=== PATIENT | female | born 1975 | race African-American/Black ===

== ENCOUNTER 2017-03-30 00:54 | Emergency (ER) | payer OTHER ==
[~2017-03-30] VITALS: Ht 160 cm; Wt 78.9 kg
[2017-03-30 01:17] VITALS: BP 144/107; PULSE 94; RESP 16; TEMP 98.6; O2SAT 99
[2017-03-30] MEDS ORDERED: PROP10TA6 PO (01:57)
[2017-03-30] MEDS ORDERED: AMLO10 PO (01:57)
--- NOTE | 2017-03-30 03:11 | PD ---
HPI Chief Complaint: Musculoskeletal Complaint Time Seen by Provider: 03:08 Travel History International Travel<30 days: No Contact w/Intl Traveler<30days: No Traveled to known affect area: No History of Present Illness HPI 42-year-old female presents to the emergency department for complaint of stomach gurgling and back spasm. Patient reports that she has chronic history of stomach gurgling and epigastric pain. Patient states [place] has been [place] in the [place] and had GI evaluation and then placed on omeprazole. Patient states that she did not feel the omeprazole was helping so discontinued this medication her own. Patient is also followed at the [facility] where manipulation is performed and resolves her symptoms. Patient states they put their hand on her abdomen overlying her stomach and apply pressure and that she feels the release of the intestinal bubbles and has relief of symptoms. Patient states that she has not gone to the clinic to be assessed or evaluated. Patient denies fever, chills, nausea, vomiting, chest pain, pleuritic chest pain, shortness of breath, sweats, referred neck jaw back shoulder or arm pain. Patient states that 2 days ago she thought she had a urinary tract infection because had intermittent dysuria but decided it might have been a fungal infection and use a one-time dose of Monistat with symptom relief. Patient states that subsequently she's noted some intermittent spasm in her back since and is concerned that she may have a urinary tract infection. Patient denies urinary frequency or urgency; she also has had no hematuria no change in bowel habits no nausea no vomiting no diarrhea no constipation. Patient states that she has taken no anti-inflammatory medications such as ibuprofen for her symptoms. Patient reports that she forgot her evening dose of Norvasc 10 mg on Thursday evening. Patient reports she normally takes her propranolol earlier in the morning and did take that on Thursday morning. Patient's had no recent long distance travel protracted bedrest or surgical procedure and denies any lower extremity pain or swelling. Patient does report several weeks ago she did injure her left knee and has been under the care physician for a meniscal injury but has had no protracted bedrest or surgical procedure. Patient rates her back spasm as 6/10 in intensity. Patient does not rate the abdominal gurgling as a specific intensity of pain. Patient denies personal history of CAD, dyslipidemia, or diabetes. Patient admits to occasional alcohol use and tobacco use. [facility] Past Medical History Narrative Medical HTN, tobacco use, alcohol use; nursing notes reviewed Hypertension: Yes Tetanus Vaccination: < 5 Years Influenza Vaccination: No ?: Not LMP: 6-7-17 : 2 Para: 2 Past Surgical History Surgical History: No Previous Surgery Social History Alcohol Use: Yes (socially) Tobacco Use: Yes Substance Use: No Allergies-Medications (Allergen,Severity, Reaction): Coded Allergies: Benadryl (Verified Allergy, Mild, 03/30/17) Reported Meds & Prescriptions Reported Meds & Active Scripts Active Reported Propranolol (Propranolol HCl) 10 Mg Tab 10 Mg PO Q12HR Norvasc (Amlodipine Besylate) 10 Mg Tab 10 Mg PO DAILY Review of Systems Except as stated in HPI: all other systems reviewed are Neg General / Constitutional: No: Fever, Chills HENT: No: Congestion, Neck Pain Cardiovascular: No: Chest Pain or Discomfort, Palpitations, Diaphoresis Respiratory: No: Cough, Shortness of Breath, Wheezing Gastrointestinal: No: Nausea, Vomiting, Abdominal Pain ("gurgling") Genitourinary: Positive: Dysuria, Flank Pain, No: Urgency, Frequency Musculoskeletal: No: Myalgias, Arthralgias, Cramping, Edema, Pain Skin: No Rash Neurologic: No: Weakness, Dizziness, Syncope, Focal Abnormalities, Coordination Problem Psychiatric: No: Anxiety Hematologic/Lymphatic: No: Easy Bruising Physical Exam Narrative GENERAL: Well-developed well-nourished female in no acute distress no respiratory distress SKIN: Warm and dry. HEAD: Normocephalic. EYES: No scleral icterus. No injection or drainage. NECK: Supple, trachea midline. No JVD or lymphadenopathy. CARDIOVASCULAR: Regular rate and rhythm without murmurs, gallops, or rubs. RESPIRATORY: Breath sounds equal bilaterally. No accessory muscle use. GASTROINTESTINAL: Abdomen soft, mild epigastric tenderness to direct palpation without guarding or rebound, nondistended. No palpable pulsatile mass. MUSCULOSKELETAL: No cyanosis, or edema. Radial and dorsalis pedis pulses 2+ to palpation. BACK: Nontender without obvious deformity. Negative straight leg raising bilaterally. Mild percussible tenderness flank/CVA left greater than right. Data Data Last Documented VS Vital Signs Date Time Temp Pulse Resp B/P Pulse Ox O2 Delivery O2 Flow Rate FiO2 03/30/17 04:01 85 18 150/90 100 Room Air 03/30/17 01:17 98.6 Orders Urinalysis - C+S If Indicated (03/30/17 03:08) Ed Urine Pregnancytest Poc (03/30/17 03:08) Amlodipine (Norvasc) (03/30/17 03:15) Hyoscyamine Liq (Levsin Liq) (03/30/17 04:15) Labs Laboratory Tests Test 03/30/17 03:04 Urine Color YELLOW Urine Turbidity SLIGHT Urine pH 5.5 Urine Specific [place] 1.014 Urine Protein NEG mg/dL Urine Glucose (UA) NEG mg/dL Urine Ketones TRACE mg/dL Urine Occult Blood MOD Urine Nitrite NEG Urine Bilirubin NEG Urine Leukocyte Esterase SMALL Urine RBC 4-9 /hpf Urine WBC 0-2 /hpf Urine Squamous Epithelial > 8 /hpf Cells Urine Amorphous Sediment SMALL Urine Bacteria FEW /hpf Urine Mucus OCC /lpf Microscopic Urinalysis Comment CULT NOT INDICATED MDM Medical Decision Making Medical Screen Exam Complete: Yes Emergency Medical Condition: Yes Medical Record Reviewed: Yes Differential Diagnosis UTI, gastritis, peptic ulcer disease, biliary colic, uncontrolled hypertension, atypical chest pain Narrative Course Urinalysis is remarkable for small amount of blood but otherwise no indication of urine infection and culture is not indicated; patient given her evening dose of Norvasc. Patient states that she feels improved but still has a gurgling sensation in her stomach/abdomen that she frequently experiences therefore given a one-time dose of Levsin. Patient does not want lab work or imaging or EKG performed and states this is not a new symptom or condition and has been evaluated and states is the same discomfort she has had before it just typically does not present to have some spasm into her back have her back is no longer causing her any discomfort. After levsin patient states symptoms have resolved; blood pressure has normalized; and patient is stable for outpatient management. Diagnosis Primary Impression: Gastritis Qualified Code: K29.70 - Gastritis without bleeding, unspecified chronicity, unspecified gastritis type Additional Impression: HTN (hypertension) Qualified Code: I10 - Essential hypertension Referrals: Primary Care Physician call for appointment Patient Instructions: General Instructions Additional Instructions: Take Levsin as prescribed as needed for intestinal spasm Recommend [id number] Prilosec daily for 14 days Follow-up with your primary care provider call office to schedule follow-up appointment Take blood pressure medication as prescribed Return to the emergency department for any concerns or change in condition Increase fluid hydration Med/Other Pt SpecificInfo: Prescription(s) given Scripts Hyoscyamine (Levsin)0.125 Mg Tab0.125 Mg PO Q6H #15 TAB Ref 0 Prov:Maryjane Irvin MD 03/30/17 Disposition: 01 DISCHARGE HOME Condition: Stable Maryjane Irivn MD Mar 30, 2017 03:11
[2017-03-30 03:13] VITALS: BP_SYST 153; BP_SYST 155; BP_DIAS 103; BP_DIAS 92
[2017-03-30 03:30] LABS: GLUCOSE,URINE NEG (NEG); KETONE, URINE TRACE mg/dL (NEG); NITRITE,URINE NEG (NEG); PH, URINE 5.5 (5.0-8.5)
[2017-03-30 03:46] LABS: BLOOD, URINE MOD (NEG); URINE COLOR YELLOW (YELLW/STRAW)
[2017-03-30 03:47] LABS: SQUAMOUS EPITHELIAL CELL URINE > 8 /hpf (0-5)
[2017-03-30 03:48] LABS: BACTERIA, URINE FEW /hpf; WBC, URINE 0-2 /hpf (0-5)
[2017-03-30 03:49] LABS: COMMENT (UR) CULT NOT INDICATED; CULTURE IF INDICATED CULT NOT INDICATED; MUCUS URINE OCC /lpf (OCC)
[2017-03-30 04:01] VITALS: BP 150/90; PULSE 85; RESP 18; O2SAT 100
[2017-03-30] MEDS ORDERED: HYOSCYAMINE SOLN 0.125 MG/ML 15 ML BTL PO ONE (04:15)
[2017-03-30 05:27] VITALS: BP 136/87
[2017-03-30] MEDS ORDERED: LEVS0.123 PO (05:27)
== END 2017-03-30 06:10 | disposition home or self-care (01) ==
LOC: PHED 00:54
DX: K29.70 Gastritis, unspecified, without bleeding (principal); I10 Essential (primary) hypertension; Z72.0 Tobacco use; G89.29 Other chronic pain; M62.830 Muscle spasm of back
CPT/HCPCS: 81001; 84703; 99283